=== PATIENT | female | born 1985 | race Caucasian/White ===

== ENCOUNTER 2017-01-15 12:58 | Outpatient (CLI) | payer BC ==
[2017-01-15 13:18] VITALS: BMI 36.1
--- NOTE | 2017-01-15 15:14 | US ---
OB LIMITED HISTORY: CHANDRA check COMPARISONS: 08/14/2016 FINDINGS: Multiple grayscale, color-flow and duplex Doppler images during Limited ultrasound are obtained. Patient is postdates. Estimated date of delivery based on prior sonography is 01/08/2017. Patient is 41 weeks and 0 days gestation. CHANDRA is 7.28. heart tones are 122 bpm. Stomach, bladder, kidneys are normal. Fetus is cephalic in presentation. Anterior placenta is noted, grade 3. The remainder the survey is deferred, as was performed on prior study. IMPRESSION: Normal CHANDRA, with heart tones of 122 bpm as above. Findings were called to Dr. Mahan at approximately 1511 hours on 01/15/2017.
== END 2017-01-15 14:48 | disposition home or self-care (01) ==
LOC: FBCOUT 12:58 → FBC 13:01 → FBCOUT 14:48
PROVIDERS: ATTEND Family Medicine
DX: O48.0 Post-term pregnancy (principal); Z3A.41 41 weeks gestation of pregnancy

== ENCOUNTER 2017-01-15 16:49 | Inpatient (IN) | payer BC ==
[2017-01-15] MEDS ORDERED: LACTATED RINGERS 1,000 ML ONE (19:06)
[2017-01-15] MEDS ORDERED: MINERAL OIL 25 ML BOT ONE (19:06)
[2017-01-15] MEDS ORDERED: IV START KIT ONE (19:06)
[2017-01-15] MEDS ORDERED: LIDOCAINE Viscous 2% 15 ML UDCUP ONE (19:06)
[2017-01-15] MEDS ORDERED: LIDOCAINE 1% (PRES FREE) 30 ML VIAL ONE (19:06)
[2017-01-15] MEDS ORDERED: OXYTOCIN 10 UNITS/ML VIAL ONE (19:06)
[2017-01-15] MEDS ORDERED: PUMP TUBING ONE (19:06)
[2017-01-15] MEDS ORDERED: SODIUM CHLORIDE 0.9% FLUSH 30 ML ONE (19:07)
[2017-01-15] MEDS ORDERED: OXYTOCIN IN LR 500 ML IV ONE (19:07)
--- NOTE | 2017-01-15 20:39 | PCMAN ---
OB Admission Note - History : 1 Term: 0 : 0 Abortions (S&E): 0 Livin EDC:: 01/08/17 Gestational Age (weeks): 41 Days (#/7): 0 Admit Cervical Dilation:: 4.5 Admit Cervical Effacement (%):: 90 Admit Station:: -1 Admit Presentaton:: vertex. ( LOT on U/S) Membrane Status: Intact Labor Onset (Date): 01/15/17 Labor Onset (Time): 20:30 Contractions: Yes Contraction Frequency:: irregular Heart Rate:: 140 (accs. 150-155. NO VD or LD. Moderate variuability) Summary of Course:: 31 y/o female @ 41 wks GA w/ and DILEEP of 01/08/17 by LMP c/w 19wk U/S. complicated by obesity and Non Rubella immune status. Pt. presented to L&D for testing. NST was Category 1. Pt. had SBP 140 's w/ DBP in the 60's to 80's/. CHANDRA was low normal at 7.28 and therefore, I recommended IOL. Pt. accepted recommendations and was brought in at 1900 and at that point was having intermittent ctxs., and had been having progressively worsening back pain since this afternoon. On examination pt.'s cervix was found to have changed from exam in clinic yesterday from 1.5/60%/-2 to 4.5cm/90 % and -1. Pt. denies MARLOW's, RUQ pain or visual changes. +FM, -LOF - Labs Blood Type: A (+) positive (AB. screen negative) Hct/Hgb:: 12.5/36.5 Rubella Status: Non-immune GBS Status: Negative Abnormal Labs: None - Physical Exam General: Afebrile (breathing through contractions) Psych/Mental Status: Mood/Affect Appropriate Neurological: Alert HEENT: EOMI, Mucous membr. moist/pink Lungs: Clear to Auscultation Bilaterally Cardiovascular: Regular Rate and Rhythm, Normal S1, Normal S2 Abdomen: Normal Bowel Sounds Genitourinary: Normal Female Genitalia Skin: Normal Color - Problems (1) Preeclampsia Status: Acute Code: O14.90Assessment/Plan: 31 y/o female @ 41wks GA with mild preclampsia and now in early labor. Pt. had desired non interventional as part of her plan and therefore I felt that since her SBP/ DBP were stable it would be ok to proceed with non intervention at this time and see how her labor curved progressed. She had made considerable cervical change since last checked 24hrs ago. Will re-asses in 2 hrs and at that point see where she is in her labor curve. Intermittent monitoring in early labor w/ BP checks Q 2hrs while in early labor. Once in active labor will proceed w/ protocols regarding V/S's and EFM. Pt. is aware and agrees w/ this plan.
[2017-01-15 20:49] LABS: ABSOLUTE NEUTROPHIL COUNT 10.7 K/mm3 (1.8-7.7); BASO % 0.2 % (0.2-1.0); EOS % 0.1 % (0.9-2.9); HEMOGLOBIN 13.7 gm/l (12.0-16.0); IMM NEUT # 0.1 K/mm3 (0-0.2); IMM NEUT% 0.4 % (0-1); LYMPH # 1.7 (1.0-4.8); LYMPH % 12.9 % (15-45); MEAN CELL VOLUME 89.9 fl (81.0-99.0); MEAN CORPUSCULAR HEMOGLOBIN 31.6 pg (27.0-31.0); MEAN CORPUSCULAR HGB CONC 35.1 g/dl (33.0-37.0); MEAN PLATELET VOLUME 11.7 fl (7.4-10.4); MONO # 0.7 (0.0-0.8); MONO % 5.3 % (4-12); NEUT % 81.1 % (43-75); PLATELET COUNT 268 K/mm3 (130-400); RED CELL DISTRIBUTION WIDTH 12.4 % (11.5-14.5)
[2017-01-15 21:21] LABS: I-STAT CREATININE 0.6 mg/dL (0.6-1.3)
[2017-01-15 21:47] VITALS: BMI 36.9
[2017-01-16] MEDS ORDERED: NALOXONE HCL 0.4 MG/ML VIAL IV PRN (02:49)
[2017-01-16] MEDS ORDERED: SODIUM CHLORIDE 0.9% 500 ML IV PRN (02:49)
[2017-01-16] MEDS ORDERED: DIPHENHYDRAMINE HCL 50 MG/1 ML VIAL IV PRN (02:49)
[2017-01-16] MEDS ORDERED: LACTATED RINGERS 500 ML IV PRN (02:49)
[2017-01-16] MEDS ORDERED: NALBUPHINE HCL 20 MG/ML AMP IV PRN (02:49)
[2017-01-16] MEDS ORDERED: ONDANSETRON 4 MG/2ML 2 ML VIAL IV PRN (02:49)
[2017-01-16] MEDS ORDERED: EPHEDRINE SULFATE 50 MG/ML 1ML VIAL IV PRN (02:49)
[2017-01-16] MEDS ORDERED: LACTATED RINGERS 1,000 ML IV SCH (02:49)
--- NOTE | 2017-01-16 04:45 | PDOC36 ---
Provider Note Subject: S: Still feeling back pain w/ ctxs. but able to cope w/ breathing exercises and pressure over her back provided by her . A little bit ago started to feel like she wanted to pee every hour and had some rectal pressure as well. No LOF No MARLOW's or visual changes. O:142/66; P=91; T 36.2 , Afebrile cvx: 7cm/90%/0 FHT: BL 130 w/ accs. to 150's. NO VD. NO LD. MOd. variability. Category 1 strip. [place]: 5-9ctxs A/P: 31y/o @ 41wks GA Adequate cervical change despite irregular ctxs. Given pt's desire for limited intervention, stable SBP's and adequate cervical change we agreed at this point to delay AROM. Re asses in 2 hours sooner if she reports a desire to push.
[2017-01-16] MEDS ORDERED: FENTANYL/ROPIVACAINE EPIDURAL 250 ML EP SCH (06:00)
[2017-01-16] MEDS ORDERED: LIDOCAINE 1% (PRES FREE) 30 ML VIAL SUB-Q ONE (15:08)
[2017-01-16] MEDS ORDERED: OXYTOCIN 10 UNITS/ML VIAL IM ONE (16:29)
[2017-01-16] MEDS ORDERED: OXYTOCIN IN LR 500 ML IV ONE (16:31)
[2017-01-16] MEDS ORDERED: LANOLIN 50 APPLIC/7G TUBE TP PRN (17:13)
[2017-01-16] MEDS ORDERED: LACTATED RINGERS 1,000 ML IV PRN (17:13)
[2017-01-16] MEDS ORDERED: BENZOCAINE/MENTHOL 60 APPLIC/BOT TP PRN (17:13)
[2017-01-16] MEDS ORDERED: HYDROCODONE/ACETAMINOPHEN 5/325MG TABLET PO PRN (17:13)
[2017-01-16] MEDS ORDERED: DOCUSATE SODIUM 100 MG CAPSULE PO PRN (17:13)
[2017-01-16] MEDS ORDERED: MAGNESIUM HYDROXIDE 30 ML UDCUP PO PRN (17:13)
[2017-01-16] MEDS ORDERED: MEASLES,MUMPS&RUBELLA VACCINE 0.5 ML VIAL SUB-Q V ONE (17:13)
[2017-01-16] MEDS: IBUPROFEN 800 MG TABLET PO PRN (17:31)
--- NOTE | 2017-01-16 17:40 | PCMDEL ---
Delivery Note - Labor 1st stage (hr/min):: 2nd stage (hr/min):: 3rd stage (hr/min):: Total (hr/min):: - Delivery Delivery (Date): 01/16/17 Delivery (Time): 16:03 Gender: Female Presentation: Cephalic Position: OA Umbilical Cord: 3 Vessel Delayed Cord Clamping:: > 3 min 1 Minute Total: 9 5 Minute Total: 9 Placenta:: normal appearance EBL:: 800mL Perineum:: 2nd degree ML Suture:: 2-0 vicryl Anesthesia/Meds:: Lidocaine Length ROM:: 6'11" Comments:: Post hemorrhage 800mL. GIven IV Pitocin and IM Pitocin
[2017-01-16 17:44] LABS: ALB/GLOB RATIO 0.9 (>1.0); ALBUMIN 3.3 gm/dL (3.5-5.7); CALCIUM 8.7 mg/dL (8.6-10.3)
[2017-01-17] MEDS: IBUPROFEN 800 MG TABLET PO PRN ×3 (00:52→17:51)
[2017-01-17 05:56] LABS: HEMATOCRIT 30.6 % (37.0-47.0); HEMOGLOBIN 10.5 gm/l (12.0-16.0)
--- NOTE | 2017-01-17 10:14 | PDOC44 ---
- Subjective Day: 1 Reports Flatus, Reports Pain Tolerable, Reports , Reports Lochia Light - Objective Temp Pulse Resp BP Pulse Ox 98.4 F 85 18 145/71 01/17/17 08:14 01/17/17 08:14 01/17/17 08:14 01/17/17 08:14 Lab Results 01/17/17 01/15/17 05:30 20:21 Hgb 10.5 L D Hct 30.6 L Creatinine 0.7 AST 19 ALT 15 01/15/17 20:21 Sodium 132 L Alkaline Phosphatase 134 H Albumin 3.3 L Albumin/Globulin Ratio 0.9 L Current Medications Generic Name Dose Route Start Last Admin Trade Name Freq PRN Reason Stop Dose Admin Acetaminophen/Hydrocodone Bitart 1 - 2 tab 01/16/17 17:13 [place] 5/325 PO Q4H PRN Pain (Moderate) Benzocaine/Menthol 1 applic 01/16/17 17:13 01/17/17 00:51 Dermoplast TP 1 bot PRN PRN Administration Patient Comfort Docusate Sodium 100 mg 01/16/17 17:13 01/17/17 04:00 Colace PO 100 mg DAILY PRN Administration Comfort Emollient Ointment 1 applic 01/16/17 17:13 [id number] TP PRN PRN sore nipples Lactated Ringer's 1,000 mls @ 100 mls/hr 01/16/17 17:13 Lactated Ringers IV .Q10H PRN Titrate per clinical situation Ibuprofen 800 mg 01/16/17 17:13 01/17/17 08:46 Motrin PO 800 mg Q6H PRN Administration Pain (Mild) Magnesium Hydroxide 30 ml 01/16/17 17:13 Milk Of Magnesia PO BEDTIME PRN Constipation Sodium Chloride 10 ml 01/16/17 17:13 Normal Saline 10ml Flush IV PRN PRN IV Flush - Physical Exam General: Afebrile Psych/Mental Status: Mood/Affect Appropriate, Judgment/Insight Intact, Bonding Well Neurological: Alert, Normal Speech HEENT: PERRLA, Mucous membr. moist/pink Lungs: Clear to Auscultation Bilaterally, Normal Air Movement Cardiovascular: Regular Rate and Rhythm, Normal S1, Normal S2 Breast: Soft Fundus: Firm Abdomen: Normal Bowel Sounds - Problems:Assessment/Plan (1) Preeclampsia Status: AcuteAssessment/Plan: SBP elevated last night, normalized over night except this AM elevated again no neurology sympts. Observe for an additional 24 hrs (2) care and examination of lactating mother Status: AcuteAssessment/Plan: continue to support BF continue PP care Disposition: Anticipate DC Home Tomorrow
[2017-01-18 08:27] VITALS: BP 132/70
--- NOTE | 2017-01-18 12:22 | PDOC39B ---
Hospital Course: ADMIT DATE: 01/15/17 DISCHARGE DATE: 01/18/17 ADMISSION DIAGNOSES: post dates mild preclampsia obesity PROCEDURES: 2nd ML tear and repair HISTORY OF PRESENT ILLNESS: 31 year old G1 T0 L0 at 41 weeks 1 days presenting with mild preclampsia and early labor. See full HPI for full details. HOSPITAL COURSE: The patient was admitted., Had prolonged first stage; with slightly longer than normal 2nd stage but appropriate for OP presentation. Delivered live born female. She had a post hemorrhage that was managed effectively w/ pitocin. By day of discharge the patient was ambulating, eating, voiding, and passing flatus without difficulty. Pain was controlled and lochia was appropriate. She was w/o difficulty. - Physical Exam Vital Signs: Temp Pulse Resp BP Pulse Ox 98.1 F 81 18 132/70 01/18/17 08:25 01/18/17 08:25 01/18/17 08:25 01/18/17 08:25 - Discharge Diagnosis (1) Preeclampsia Qualifiers: Trimester: third trimester Qualifier Code: (O14.93) Unspecified pre- eclampsia, third trimester Status: AcuteAssessment/Plan: SBP sightly elevated but acceptable range no neurological sympts recheck in 2 wks (2) care and examination of lactating mother Status: AcuteAssessment/Plan: continue to support BF continue PP care - Discharge Plan Condition: Stable Disposition: Home Prescriptions: Ibuprofen [IBUPROFEN 800 MG TABLET (SHF)] 800 mg PO Q6H PRN #30 PRN Reason: Pain (Mild) Hydrocodone Bit/Acetaminophen [NORCO 5/325 MG TABLET (SHF)] 1 - 2 tab PO Q4H PRN #15 PRN Reason: Pain (Moderate) Follow-Up: Gaviota Mahan MD [Primary Care Provider] - 02/05/17 10:30 am (blood pressure check )
[2017-01-18] MEDS ORDERED: IV START KIT ONE (16:55)
== END 2017-01-18 13:09 | disposition home or self-care (01) | DRG 774 ==
LOC: FBC 19:05
PROVIDERS: ADMIT Family Medicine; ATTEND Family Medicine
PROC: 10E0XZZ Delivery of Products of Conception, External Approach (ICD-10-PCS; principal; 2017-01-16)
PROC: 0KQM0ZZ Repair Perineum Muscle, Open Approach (ICD-10-PCS; 2017-01-16)
PROC: 3E0234Z Introduction of Serum, Toxoid and Vaccine into Muscle, Percutaneous Approach (ICD-10-PCS; 2017-01-18)
DX: O14.04 Mild to moderate pre-eclampsia, complicating childbirth (principal); O72.1 Other immediate postpartum hemorrhage; O99.214 Obesity complicating childbirth; Z68.36 Body mass index [BMI] 36.0-36.9, adult; O48.0 Post-term pregnancy; O70.1 Second degree perineal laceration during delivery; Z3A.41 41 weeks gestation of pregnancy; Z37.0 Single live birth; O75.89 Other specified complications of labor and delivery

== ENCOUNTER 2017-01-21 15:56 | Outpatient (CLI) | payer BC | END 2017-01-21 15:57 | disposition home or self-care (01) | LOC: BABIESSH 15:56 | PROVIDERS: ATTEND Family Medicine | DX: Z39.1 Encounter for care and examination of lactating mother (principal) ==